=== PATIENT | male | born 1970 | race Caucasian/White ===

== ENCOUNTER 2018-04-28 06:32 | Day surgery (SDC) | payer OTHER ==
[~2018-04-28] VITALS: Ht 188 cm; Wt 93.5 kg
[2018-04-28] MEDS ORDERED: SILD25T (07:08)
[2018-04-28] MEDS ORDERED: LISI20 (07:08)
[2018-04-28] MEDS ORDERED: ALLEGRA ALLERGY60 MG (07:09)
--- NOTE | 2018-04-28 12:35 | NUR ---
04/28/18 1235 Brayan Calixto NURSE ASSISTED PATIENT WALK OUT TO HIS RIDE HOME.
== END 2018-04-28 09:49 | disposition home or self-care (01) ==
LOC: ORSCSDS 06:32
PROVIDERS: Surgery
PROC: 0DBP8ZX Excision of Rectum, Via Natural or Artificial Opening Endoscopic, Diagnostic (ICD-10-PCS; principal; 2018-04-28 08:00)
PROC: 3E0H8GC Introduction of Other Therapeutic Substance into Lower GI, Via Natural or Artificial Opening Endoscopic (ICD-10-PCS; principal; 2018-04-28 08:00)
PROC: 0DBN8ZX Excision of Sigmoid Colon, Via Natural or Artificial Opening Endoscopic, Diagnostic (ICD-10-PCS; principal; 2018-04-28 08:00)
DX: K62.5 Hemorrhage of anus and rectum (principal); K62.1 Rectal polyp; K63.5 Polyp of colon; K64.8 Other hemorrhoids; I10 Essential (primary) hypertension; F17.210 Nicotine dependence, cigarettes, uncomplicated; Z79.899 Other long term (current) drug therapy
CPT/HCPCS: 88305; J0330; J0461; J1980; J2405; J7120